=== PATIENT | female | born 1935 | race Caucasian/White ===

== ENCOUNTER 2017-03-11 16:02 | Inpatient (IN) | payer MEDICARE, OTHER ==
--- NOTE | 2017-03-11 16:17 | CT ---
EXAMINATION TYPE: CT brain wo con DATE OF EXAM: 03/11/2017 COMPARISON: NONE HISTORY: Right sided weakness. CT DLP: 1036.00 mGycm Automated exposure control for dose reduction was used. FINDINGS: Atherosclerotic change of the left vertebral artery noted. Could not exclude intracranial atheroscler otic disease of the carotid systems. Ventricular system is midline. There is periventricular hypoattenuation particularly along the fronta l horns. Additional areas of periventricular abnormal density suggestive of nonspecific white matter No acute hemorrhage, mass effect or midline shift. Tiny hypodensities within the basal ganglia bilate rally. IMPRESSION: 1. NO ACUTE HEMORRHAGE MASS EFFECT OR MIDLINE SHIFT. 2. NONSPECIFIC WHITE MATTER CHANGES. 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 CORRELATE WITH DIFFUSION MRI IF THERE IS CONCERN FOR ACUTE ISCHEMIA. 3. PROMINENT VIRCHOW-KRISTIAN SPACE VERSUS REMOTE LACUNAR INFARCTION BASAL GANGLIA.
[2017-03-11] MEDS ORDERED: SODIUM CHLORIDE 0.9% 500 ML IV STA (16:27)
--- NOTE | 2017-03-11 16:30 | ED ---
General Adult HPI - General Stated complaint: POSS CVA Time Seen by Provider: 03/11/17 16:25 Source: RN notes reviewed - History of Present Illness Initial comments: This is a 81-year-old female who presented to the emergency department without me evaluating the patient he was taken to CAT scan EMS stated that the the patient had right-sided weakness all washing dishes and slurred speech. EMS stated the patient initially fell when she became weak. I saw the patient after CAT scan her speech was fine and she had no weakness at this time. Patient denies headache patient denies any numbness weakness at this time. Patient states she feels back to her baseline. Patient states she does not have an irregular heart rate however EMS stated that when they did a rhythm strip on it appeared that she was in A. fib. Patient denies any palpitations. Patient denies any chest pain. Patient denies any shortness of breath or difficulty breathing. Patient denies any fever chills or cough. Patient denies any abdominal pain. Patient denies any nausea vomiting diarrhea. - Related Data Home Medications Medication Instructions Recorded Confirmed Atenolol [Tenormin] 50 mg PO DAILY 03/11/17 03/11/17 Losartan Potassium [Cozaar] 100 mg PO QAM 03/11/17 03/11/17 Simvastatin [Zocor] 20 mg PO HS 03/11/17 03/11/17 Allergies Allergy/AdvReac Type Severity Reaction Status Date / Time No Known Allergies Allergy Verified 03/11/17 16:30 Review of Systems ROS Statement: Those systems with pertinent positive or pertinent negative responses have been documented in the HPI. ROS Other: All systems not noted in ROS Statement are negative. General Exam - General Exam Comments Initial Comments: GENERAL: Patient is well-developed and well-nourished. Patient is nontoxic and well- hydrated and is in no acute distress. ENT: Neck is soft and supple. No significant lymphadenopathy is noted. Oropharynx is clear. Moist mucous membranes. Neck has full range of motion without eliciting any pain. EYES: The sclera were anicteric and conjunctiva were pink and moist. Extraocular movements were intact and pupils were equal round and reactive to light. Eyelids were unremarkable. PULMONARY: Unlabored respirations. Good breath sounds bilaterally. No audible rales rhonchi or wheezing was noted. CARDIOVASCULAR: There is a regular rate and rhythm without any murmurs gallops or rubs. ABDOMEN: Soft and nontender with normal bowel sounds. No palpable organomegaly was noted. There is no palpable pulsatile mass. SKIN: Skin is clear with no lesions or rashes and otherwise unremarkable. NEUROLOGIC: Patient is alert and oriented x3. Cranial nerves II through XII are grossly intact. Motor and sensory are also intact. Normal speech, volume and content. Symmetrical smile. MUSCULOSKELETAL: Normal extremities with adequate strength and full range of motion. No lower extremity swelling or edema. No calf tenderness. LYMPHATICS: No significant lymphadenopathy is noted PSYCHIATRIC: Normal psychiatric evaluation. Course Vital Signs 03/11/17 03/11/17 03/11/17 16:31 16:46 17:37 Temperature 98.4 F Pulse Rate 103 H 88 89 Respiratory 14 18 16 Rate Blood Pressure 217/126 207/115 224/113 O2 Sat by Pulse 98 98 97 Oximetry 03/11/17 18:41 Temperature 98.4 F Pulse Rate 83 Respiratory 20 Rate Blood Pressure 192/106 O2 Sat by Pulse 93 L Oximetry Medical Decision Making - Medical Decision Making EKG shows atrial fibrillation with rapid ventricular response at 105 bpm QRS is 82 QT interval 360 QTC is 475. Patient's EKG shows no ST segment elevation there is a slight ST segment depression in leads V4 through V6. Old - Lab Data Result diagrams: 03/11/17 16:45 03/11/17 16:45 Lab Results 03/11/17 03/11/17 03/11/17 Range/Units 16:26 16:45 16:45 WBC 8.2 (3.8-10.6) k/uL RBC 4.80 (3.80-5.40) m/uL Hgb 15.6 (11.4-16.0) gm/dL Hct 45.2 (34.0-46.0) % MCV 94.2 (80.0-100.0) fL MCH 32.5 (25.0-35.0) pg MCHC 34.6 (31.0-37.0) g/dL RDW 13.1 (11.5-15.5) % Plt Count 178 (150-450) k/uL Neutrophils % 70 % Lymphocytes % 23 % Monocytes % 4 % Eosinophils % 2 % Basophils % 0 % Neutrophils # 5.8 (1.3-7.7) k/uL Lymphocytes # 1.9 (1.0-4.8) k/uL Monocytes # 0.3 (0-1.0) k/uL Eosinophils # 0.1 (0-0.7) k/uL Basophils # 0.0 (0-0.2) k/uL PT (9.0-12.0) sec INR (<1.1) APTT (22.0-30.0) sec Sodium (137-145) mmol/L Potassium (3.5-5.1) mmol/L Chloride (98-107) mmol/L Carbon Dioxide (22-30) mmol/L Anion Gap mmol/L BUN (7-17) mg/dL Creatinine (0.52-1.04) mg/dL Est GFR (MDRD) Af Amer (>60 ml/min/1.73 sqM) Est GFR (MDRD) Non-Af (>60 ml/min/1.73 sqM) Glucose (74-99) mg/dL POC Glucose (mg/dL) 194 H (75-99) mg/dL POC Glu [employer] ID Sunny Dunlap Calcium (8.4-10.2) mg/dL Total Bilirubin (0.2-1.3) mg/dL AST (14-36) U/L ALT (9-52) U/L Alkaline Phosphatase (38-126) U/L Total Creatine Kinase 35 (30-135) U/L CK-MB (CK-2) 1.1 (0.0-2.4) ng/mL CK-MB (CK-2) Rel Index 3.1 Troponin I <0.012 (0.000-0.034) ng/mL Total Protein (6.3-8.2) g/dL Albumin (3.5-5.0) g/dL 03/11/17 03/11/17 Range/Units 16:45 16:45 WBC (3.8-10.6) k/uL RBC (3.80-5.40) m/uL Hgb (11.4-16.0) gm/dL Hct (34.0-46.0) % MCV (80.0-100.0) fL MCH (25.0-35.0) pg MCHC (31.0-37.0) g/dL RDW (11.5-15.5) % Plt Count (150-450) k/uL Neutrophils % % Lymphocytes % % Monocytes % % Eosinophils % % Basophils % % Neutrophils # (1.3-7.7) k/uL Lymphocytes # (1.0-4.8) k/uL Monocytes # (0-1.0) k/uL Eosinophils # (0-0.7) k/uL Basophils # (0-0.2) k/uL PT 10.9 (9.0-12.0) sec INR 1.1 (<1.1) APTT 20.1 L (22.0-30.0) sec Sodium 137 (137-145) mmol/L Potassium 3.9 (3.5-5.1) mmol/L Chloride 100 (98-107) mmol/L Carbon Dioxide 22 (22-30) mmol/L Anion Gap 15 mmol/L BUN 15 (7-17) mg/dL Creatinine 0.69 (0.52-1.04) mg/dL Est GFR (MDRD) Af Amer >60 (>60 ml/min/1.73 sqM) Est GFR (MDRD) Non-Af >60 (>60 ml/min/1.73 sqM) Glucose 180 H (74-99) mg/dL POC Glucose (mg/dL) (75-99) mg/dL POC Glu Grinder Machine Setter ID Calcium 9.5 (8.4-10.2) mg/dL Total Bilirubin 1.8 H (0.2-1.3) mg/dL AST 28 (14-36) U/L ALT 25 (9-52) U/L Alkaline Phosphatase 103 (38-126) U/L Total Creatine Kinase (30-135) U/L CK-MB (CK-2) (0.0-2.4) ng/mL CK-MB (CK-2) Rel Index Troponin I (0.000-0.034) ng/mL Total Protein 7.7 (6.3-8.2) g/dL Albumin 4.3 (3.5-5.0) g/dL Disposition Clinical Impression: Transient cerebral ischemia, New onset a-fib Disposition: ADMITTED IP TO THIS HOSP Referrals: Librado Paz MD [Primary Care Provider] - 1-2 days Time of Disposition: 19:15
[2017-03-11 16:35] LABS: Glucose,Whole Blood 194 mg/dL (75-99)
[2017-03-11] MEDS ORDERED: DILTIAZEM 5 MG/ML 5 ML VIAL IVP STA (16:42)
--- NOTE | 2017-03-11 16:53 | CT ---
EXAMINATION TYPE: CT angio head neck DATE OF EXAM: 03/11/2017 HISTORY: Right sided weakness. COMPARISON: NONE CT DLP: 307.60 mGycm. Automated Exposure Control for Dose Reduction was Utilized. TECHNIQUE: CTA scan of the neck is performed with IV Contrast, patient injected with 65 mL of Visipa que 320, axial images are obtained, coronal and sagittal reformatted images are reviewed. Three-D rec onstructed images are created on an independent workstation and reviewed. FINDINGS: There is anomalous right subclavian artery which passes posterior to the esophagus. There is bilatera l arterial flow in the vertebral arteries which are fairly symmetric. Distal left vertebral artery is larger than the right. There is arterial flow in the common internal and external carotid arteries. There is no evidence of stenosis. There is minimal calcification at the right carotid artery bifurcation. There is no sign of stenosis at the carotid artery bifurcations. There is no evidence of aneurysm or dissection. There is arterial flow in the anterior middle and posterior cerebral arteries. There is no mass effec t. There is no sign of aneurysm or neovascularity. There is normal contrast opacification of the veno us sinuses. IMPRESSION: No evidence of stenosis. No evidence of aneurysm or dissection. Anomalous right subclavian artery.
[2017-03-11 17:00] LABS: Basophils % (A) 0 %; CH 33.1; CHCM 35.3; Eosinophils # (A) 0.1 k/uL (0-0.7); Eosinophils % (A) 2 %; HCT 45.2 % (34.0-46.0); HGB 15.6 gm/dL (11.4-16.0); Luc # (Auto) 0.11; Luc % (Auto) 1; Lymphocytes # (A) 1.9 k/uL (1.0-4.8); Lymphocytes % (A) 23 %; MCH 32.5 pg (25.0-35.0); MCHC 34.6 g/dL (31.0-37.0); MCV 94.2 fL (80.0-100.0); Mean Platelet Volume 7.4; Monocytes # (A) 0.3 k/uL (0-1.0); Monocytes % (A) 4 %; Neutrophils # (A) 5.8 k/uL (1.3-7.7); Neutrophils % (A) 70 %; RDW 13.1 % (11.5-15.5); WBC 8.2 k/uL (3.8-10.6); WBC (Perox) 8.05
[2017-03-11 17:05] LABS: ALT 25 U/L (9-52); AST 28 U/L (14-36); Alkaline Phosphatase 103 U/L (38-126); Anion Gap 15 mmol/L; Blood Urea Nitrogen 15 mg/dL (7-17); Calcium 9.5 mg/dL (8.4-10.2); Carbon Dioxide 22 mmol/L (22-30); Chloride 100 mmol/L (98-107); Glucose 180 mg/dL (74-99); Non-African American GFR(MDRD) >60 (>60 ml/min/1.73 sqM); Potassium 3.9 mmol/L (3.5-5.1); Sodium 137 mmol/L (137-145); Total Bilirubin 1.8 mg/dL (0.2-1.3); Total Protein 7.7 g/dL (6.3-8.2)
[2017-03-11 17:17] LABS: Creatine Kinase 35 U/L (30-135); INR 1.1 (<1.1); Partial Thromboplastin Time 20.1 sec (22.0-30.0); Prothrombin Time 10.9 sec (9.0-12.0)
--- NOTE | 2017-03-11 17:21 | XR ---
EXAMINATION TYPE: XR chest 2V DATE OF EXAM: 03/11/2017 COMPARISON: The HISTORY: Altered mental status TECHNIQUE: Frontal and lateral views of the chest are obtained. FINDINGS: There is no heart failure nor confluent pneumonic infiltrate. There are no hilar masses. T here are chest leads. There is no sign of pleural effusion. Bony thorax is intact. IMPRESSION: Normal chest. No change. Left mastectomy noted.
[2017-03-11 17:30] LABS: Creatine Kinase MB 1.1 ng/mL (0.0-2.4); Troponin I <0.012 ng/mL (0.000-0.034)
[2017-03-11] MEDS ORDERED: ASPIRIN 325 MG TAB PO STA (18:38)
[2017-03-11] MEDS ORDERED: HEPARIN SODIUM,PORCINE 5,000 UNIT/ML 1 ML VIAL IV ONE (19:18)
[2017-03-11] MEDS ORDERED: hydrALAZINE HCL 20 MG/ML 1 ML VIAL IVP STA (19:21)
[2017-03-11] MEDS ORDERED: HEPARIN SODIUM,PORCINE/D5W PMX 25,000 UNIT in DEXTROSE/WATER 1 500ML.BAG IV SCH (19:30)
[2017-03-11 20:51] VITALS: BMI 33.4
[2017-03-11 21:56] LABS: Appearance,Urine Clear (Clear); Bacteria,Urine Rare /hpf; Bilirubin,Urine Negative (Negative); Glucose,Urine (UA) Negative (Negative); Ketones,Urine Negative (Negative); Leukocyte Esterase,Urine Negative (Negative); Nitrite,Urine Negative (Negative); PH, Urine 7.5 (5.0-8.0); Particle Count 371; Protein,Urine Negative (Negative); RBC,Urine 40 /hpf (0-5); Specific Gravity,Urine 1.012 (1.001-1.035); Squamous Epithelial Cell,Urine 1 /hpf (0-4); UA Billing (MACRO vs. MICRO) MICRO; Urobilinogen,Urine <2.0 mg/dL (<2.0); WBC,Urine 4 /hpf (0-5)
[2017-03-11] MEDS ORDERED: DILTIAZEM 125 MG in SODIUM CHLORIDE 0.9% 100 ML IV SCH (22:30)
[2017-03-11] MEDS ORDERED: ATORVASTATIN 10 MG TAB PO SCH (23:00)
[2017-03-11] MEDS: ACETAMINOPHEN TAB 325 MG TAB PO PRN (23:48)
[2017-03-11] MEDS: ALPRAZolam 0.25 MG TAB PO PRN (23:49)
[2017-03-12 06:17] LABS: Basophils % (A) 0 %; CHCM 35.3; Eosinophils # (A) 0.1 k/uL (0-0.7); Eosinophils % (A) 0 %; HCT 42.6 % (34.0-46.0); HDW 2.37; HGB 14.6 gm/dL (11.4-16.0); Luc # (Auto) 0.19; Luc % (Auto) 1; Lymphocytes % (A) 22 %; MCHC 34.1 g/dL (31.0-37.0); MCV 93.8 fL (80.0-100.0); Mean Platelet Volume 7.5; Monocytes # (A) 0.5 k/uL (0-1.0); Monocytes % (A) 4 %; Neutrophils # (A) 9.6 k/uL (1.3-7.7); Neutrophils % (A) 72 %; RBC 4.55 m/uL (3.80-5.40); RDW 13.1 % (11.5-15.5); WBC 13.4 k/uL (3.8-10.6); WBC (Perox) 13.52
[2017-03-12 06:28] LABS: Anion Gap 12 mmol/L; Blood Urea Nitrogen 12 mg/dL (7-17); Calcium 9.4 mg/dL (8.4-10.2); Carbon Dioxide 23 mmol/L (22-30); Chloride 101 mmol/L (98-107); Cholesterol 158 mg/dL (<200); Glucose 109 mg/dL (74-99); HDL Cholesterol 74 mg/dL (40-60); Non-African American GFR(MDRD) >60 (>60 ml/min/1.73 sqM); Potassium 3.6 mmol/L (3.5-5.1); Sodium 136 mmol/L (137-145); Triglycerides 68 mg/dL (<150)
[2017-03-12] MEDS: ALPRAZolam 0.25 MG TAB PO PRN ×2 (07:26→23:14)
--- NOTE | 2017-03-12 08:46 | P.CNNES ---
History of Present Illness Consult date: 03/12/17 Reason for Consult: Patient admitted with TIA symptoms and Atiral Fibrillation. History of Present Illness: This patient is a 81-year-old right-handed white female who was in her usual state of health until yesterday afternoon. According to the patient she was in her kitchen and was washing some dishes when she developed difficulty with the use of both of her hands. She was experiencing some numbness in the hands as well. She was able to contact her who was in the other room and when he arrived into the kitchen he noticed that her speech was quite slurred. He could tell that she had difficulty expressing herself and was not able to get her words out as usual. The immediately called 911. By the time EMS arrived at the home she was showing signs of improvement. She stated that her hands were just not feeling right and were weak. Her speech was very garbled initially as was noted by her . She has no previous history of TIA or stroke. She was brought in EMS to the emergency room where she was evaluated by Dr. Quiroz. She was sent for a computed tomography scan of the brain which failed to reveal any acute changes. She subsequently had a CT angiogram of the head and neck which also came back negative for any significant stenosis. In the emergency room Dr. Quiroz found that her EKG revealed her to have new onset atrial fibrillation. She was started on IV heparin protocol and admitted to the hospital. As noted computed tomography scan failed to reveal any acute stroke or hemorrhage. She denies any previous history of cardiac arrhythmia. Her blood pressure was treated in the ER and she was admitted to the hospital for a complete stroke evaluation. Patient is resting this morning comfortably in her room. Blood pressure is under much better control. As noted she has no previous history of atrial fibrillation. She denies any headache or weakness in her hands at this time. Her clinical history is very suggestive of a left hemispheric TIA. We have recommended a cardiology consultation for evaluation of her atrial fibrillation. Neurology is now been consulted for further evaluation and recommendations. Review of Systems Constitutional: Denies chills, Denies fever Eyes: denies blurred vision, denies pain Ears, nose, mouth and throat: Denies headache, Denies sore throat Cardiovascular: Denies chest pain, Denies shortness of breath Respiratory: Denies cough Gastrointestinal: Denies abdominal pain, Denies diarrhea, Denies nausea, Denies vomiting Genitourinary: Denies dysuria, Denies hematuria Musculoskeletal: Denies myalgias Integumentary: Denies pruritus, Denies rash Neurological: Reports change in speech, Reports paresthesias, Denies numbness, Denies weakness Psychiatric: Denies anxiety, Denies depression Endocrine: Denies fatigue, Denies weight change Past Medical History Past Medical History: Hyperlipidemia, Hypertension History of Any Multi-Drug Resistant Organisms: None Reported Past Surgical History: Appendectomy, Hysterectomy Additional Past Surgical History / Comment(s): left masectomy-2002 Past Anesthesia/Blood Transfusion Reactions: No Reported Reaction Past Psychological History: No Psychological Hx Reported Smoking Status: Never smoker Past Alcohol Use History: None Reported Past Drug Use History: None Reported - Past Family History Mother Family Medical History: Cancer Father Family Medical History: Cancer Medications and Allergies Home Medications Medication Instructions Recorded Confirmed Type Atenolol [Tenormin] 50 mg PO DAILY 03/11/17 03/11/17 History Losartan Potassium [Cozaar] 100 mg PO QAM 03/11/17 03/11/17 History Simvastatin [Zocor] 20 mg PO HS 03/11/17 03/11/17 History Allergies Allergy/AdvReac Type Severity Reaction Status Date / Time No Known Allergies Allergy Verified 03/11/17 16:30 Physical Examination - Vital Signs Vital Signs: Vital Signs Temp Pulse Pulse Resp BP BP Pulse Ox 03/12/17 05:32 97.0 F L 77 18 154/69 99 03/12/17 04:00 83 03/12/17 03:32 83 18 155/87 98 03/12/17 01:32 83 18 154/97 97 03/12/17 00:00 84 18 03/11/17 23:32 84 18 158/100 98 03/11/17 22:32 90 18 165/106 99 03/11/17 21:32 96 18 165/107 97 03/11/17 20:52 107 H 18 03/11/17 20:32 97.1 F L 107 H 18 163/95 96 03/11/17 19:51 88 16 177/109 99 03/11/17 19:24 88 18 181/128 99 03/11/17 18:41 98.4 F 83 20 192/106 93 L 03/11/17 17:37 89 16 224/113 97 03/11/17 16:46 88 18 207/115 98 03/11/17 16:31 98.4 F 103 H 14 217/126 98 Intake and Output 03/11/17 03/12/17 03/12/17 22:59 06:59 14:59 Intake Total 39.6 316.8 Output Total 250 950 Balance -210.4 -633.2 Intake: IV 39.6 316.8 0.9NS@20 160 Heparin Sodium,Porcine/ 19.6 156.8 D5w Pmx 25,000 unit In Dextrose/Water 1 500ml. bag @ 12 UNITS/KG/HR 19. 59 mls/hr IV .Q24H [facility]ARA Rx #:[id number] Sodium Chloride 0.9% 500 20 ml @ 999 mls/hr IV .Q31M STA Rx#:[id number] Output: Urine 250 950 Other: Voiding Method Toilet Toilet # Voids 1 Weight 85.6 kg 85.6 kg - Constitutional General appearance: average body habitus, cooperative - EENT EENT: PERRL, mucous membranes moist - Respiratory Respiratory: lungs clear, normal breath sounds - Cardiovascular Cardiovascular: normal S1, normal S2 Extremities: no peripheral edema bilaterally - Gastrointestinal Gastrointestinal: normoactive bowel sounds - Integumentary Integumentary: normal - Neurologic Cranial nerve examination: PERRL, EOMI, VFF, V1/V2/V3 grossly intact, face symmetric, intact shoulder shrug, intact gag reflex, intact corneal reflex, normal palatal elevation Speech examination: intact Sensorimotor examination: intact Detailed motor examination: grossly full strength in all extremities Motor examination - right side: 5/5: biceps, triceps, wrist flexion, wrist extension, wire rigger, hip flexors, knee extensors, dorsiflexion, toe extension (EHL) , plantarflexion Motor examination - left side: 5/5: biceps, triceps, wrist flexion, wrist extension, wire rigger, hip flexors, knee extensors, dorsiflexion, toe extension (EHL) , plantarflexion Detailed sensory examination: intact Reflex and gait examination: intact Reflexes: 1+: ankle, bicep, knee, tricep - Musculoskeletal Musculoskeletal: no pain - Psychiatric Psychiatric: mood/affect appropriate, cooperative Results - Laboratory Findings CBC and BMP: 03/12/17 05:41 03/12/17 05:41 Abnormal Lab Findings: Abnormal Labs 03/11/17 03/11/17 03/11/17 16:26 16:45 16:45 WBC Neutrophils # APTT 20.1 L Sodium Glucose 180 H POC Glucose (mg/dL) 194 H Total Bilirubin 1.8 H HDL Cholesterol Urine Blood Urine RBC Urine Bacteria 03/11/17 03/12/17 03/12/17 21:35 02:17 05:41 WBC Neutrophils # APTT 64.1 H Sodium 136 L Glucose 109 H POC Glucose (mg/dL) Total Bilirubin HDL Cholesterol 74 H Urine Blood Moderate H Urine RBC 40 H Urine Bacteria Rare H 03/12/17 05:41 WBC 13.4 H Neutrophils # 9.6 H APTT Sodium Glucose POC Glucose (mg/dL) Total Bilirubin HDL Cholesterol Urine Blood Urine RBC Urine Bacteria Assessment and Plan (1) TIA (transient ischemic attack) Status: Acute Code(s): G45.9 - TRANSIENT CEREBRAL ISCHEMIC ATTACK, UNSPECIFIED (2) Essential hypertension Status: Acute Code(s): I10 - ESSENTIAL (PRIMARY) HYPERTENSION (3) New onset a-fib Status: Acute Code(s): I48.91 - UNSPECIFIED ATRIAL FIBRILLATION Plan: This patient is a 81-year-old female who was admitted to hospital yesterday with sudden onset of slurred speech and hand weakness and numbness. Symptoms began yesterday afternoon at home and lasted several minutes in duration. By the time she was seen in the emergency room by Dr. Quiroz her NIH stroke scale was 0. She was sent for computed tomography scan of the brain which failed to reveal any evidence of acute stroke or hemorrhage. EKG revealed the patient to have new onset atrial fibrillation. Since computed tomography scan was negative for any acute hemorrhage or stroke she was started on IV heparin protocol and admitted to the hospital. Patient also underwent CT angiogram of the head and neck which was negative. Patient is now back to baseline in terms of her neurological exam findings. Her blood pressure is under better control. This patient likely suffered an acute left hemispheric TIA secondary to new onset atrial fibrillation. We would recommend a cardiology consultation for further treatment of the atrial fibrillation. We have recommended a complete stroke evaluation for the patient. Overall prognosis at this time remains guarded. We will continue close neurological follow-up of this patient during this admission. Time with Patient: Greater than 30
[2017-03-12] MEDS ORDERED: ASPIRIN 325 MG TAB PO SCH (09:00)
[2017-03-12] MEDS: ACETAMINOPHEN TAB 325 MG TAB PO PRN (09:03)
[2017-03-12] MEDS ORDERED: POTASSIUM CHLORIDE ER 20 MEQ TAB.ER PO STA (09:59)
--- NOTE | 2017-03-12 09:59 | P.CRDCN ---
History of Present Illness Consult date: 03/12/17 Requesting physician: Librado Paz Consult reason: atrial fibrillation Chief complaint: Hand weakness and expressive aphasia History of present illness: This is a pleasant 81-year-old female with history of hypertension, prior history of breast cancer with left mastectomy in 2001 who was in her usual state of health, she states that she was washing dishes in the kitchen, when she noticed her bilateral hands became extremely weak and numb, shortly thereafter the patient states she was unable to get the words out that she was thinking, and was having some mild slurring of speech. EMS was called and by the time they arrived symptoms had resolved. Patient denies any prior symptoms similar to this. EKG performed on admission here showed atrial fibrillation with a rapid ventricular response. CAT scan of the brain did not reveal any acute hemorrhage, mass effect or midline shift. Nonspecific white matter changes most likely on the basis of microvascular ischemia. CT angiography did not reveal evidence of stenosis. No evidence of aneurysm or dissection. Blood pressure on arrival here to 17/126, heart rate in the low 100s. 98.4 temperature 90.8 percent on 2 L of oxygen. Blood pressure this morning 140/70, heart rate in the 70s. She is currently on IV heparin, and IV Cardizem drip at 5 mg per hour. White blood cell count 8.2 yesterday, 13.4 this morning. Hemoglobin 14.6, platelet count 188, sodium 136, potassium 3.6, BUN 12, creatinine 0.6. Total bilirubin 1.8. Troponin 0.012, 0.032. BNP level 4100. Chest x-ray normal. At the time of my examination this morning, patient is sitting up in the chair at bedside, denies any weakness on either side of the body, no expressive aphasia, no dizziness or lightheadedness. Patient denies any palpitations and states that she has not noted any palpitations or heart racing in the past. She has never been told in the past to have atrial fibrillation. Past Medical History Past Medical History: Hyperlipidemia, Hypertension History of Any Multi-Drug Resistant Organisms: None Reported Past Surgical History: Appendectomy, Hysterectomy Additional Past Surgical History / Comment(s): left masectomy-2001 Past Anesthesia/Blood Transfusion Reactions: No Reported Reaction Past Psychological History: No Psychological Hx Reported Smoking Status: Never smoker Past Alcohol Use History: None Reported Past Drug Use History: None Reported - Past Family History Mother Family Medical History: Cancer Father Family Medical History: Cancer Medications and Allergies Home Medications Medication Instructions Recorded Confirmed Type Atenolol [Tenormin] 50 mg PO DAILY 03/11/17 03/11/17 History Losartan Potassium [Cozaar] 100 mg PO QAM 03/11/17 03/11/17 History Simvastatin [Zocor] 20 mg PO HS 03/11/17 03/11/17 History Allergies Allergy/AdvReac Type Severity Reaction Status Date / Time No Known Allergies Allergy Verified 03/11/17 16:30 Physical Exam Vitals: Vital Signs Temp Pulse Pulse Resp BP BP Pulse Ox 03/12/17 09:26 63 18 03/12/17 07:32 96.9 F L 68 18 140/77 99 03/12/17 05:32 97.0 F L 77 18 154/69 99 03/12/17 04:00 83 03/12/17 03:32 83 18 155/87 98 03/12/17 01:32 83 18 154/97 97 03/12/17 00:00 84 18 03/11/17 23:32 84 18 158/100 98 03/11/17 22:32 90 18 165/106 99 03/11/17 21:32 96 18 165/107 97 03/11/17 20:52 107 H 18 03/11/17 20:32 97.1 F L 107 H 18 163/95 96 03/11/17 19:51 88 16 177/109 99 03/11/17 19:24 88 18 181/128 99 03/11/17 18:41 98.4 F 83 20 192/106 93 L 03/11/17 17:37 89 16 224/113 97 03/11/17 16:46 88 18 207/115 98 03/11/17 16:31 98.4 F 103 H 14 217/126 98 Intake and Output 03/11/17 03/12/17 03/12/17 22:59 06:59 14:59 Intake Total 39.6 316.8 Output Total 250 950 Balance -210.4 -633.2 Intake: IV 39.6 316.8 0.9NS@20 160 Heparin Sodium,Porcine/ 19.6 156.8 D5w Pmx 25,000 unit In Dextrose/Water 1 500ml. bag @ 12 UNITS/KG/HR 19. 59 mls/hr IV .Q24H [facility] Rx #:[id number] Sodium Chloride 0.9% 500 20 ml @ 999 mls/hr IV .Q31M [facility] Rx#:[id number] Output: Urine 250 950 Other: Voiding Method Toilet Toilet Toilet # Voids 1 Weight 85.6 kg 85.6 kg PHYSICAL EXAMINATION: HEENT: Head is atraumatic, normocephalic. Pupils equal, round. Neck is supple. There is no elevated jugular venous pressure. HEART EXAMINATION: Heart S1 and S2 irregularly irregular CHEST EXAMINATION: Lungs are clear to auscultation and precussion. No chest wall tenderness is noted on palpation or with deep breathing. ABDOMEN: Soft, nontender. Bowel sounds are heard. No organomegaly noted. EXTREMITIES: 2+ peripheral pulses with no evidence of peripheral edema and no calf tenderness noted. NEUROLOGIC patient is awake, alert and oriented -3. . Results 03/12/17 05:41 03/12/17 05:41 Cardiac Enzymes 03/11/17 03/11/17 03/12/17 Range/Units 16:45 16:45 05:41 AST 28 (14-36) U/L CK-MB (CK-2) 1.1 (0.0-2.4) ng/mL Troponin I <0.012 0.032 (0.000-0.034) ng/mL Coagulation 03/11/17 03/12/17 Range/Units 16:45 02:17 PT 10.9 (9.0-12.0) sec APTT 20.1 L 64.1 H (22.0-30.0) sec Lipids 03/12/17 Range/Units 05:41 Triglycerides 68 (<150) mg/dL Cholesterol 158 (<200) mg/dL HDL Cholesterol 74 H (40-60) mg/dL CBC 03/11/17 03/12/17 Range/Units 16:45 05:41 WBC 8.2 13.4 H (3.8-10.6) k/uL RBC 4.80 4.55 (3.80-5.40) m/uL Hgb 15.6 14.6 (11.4-16.0) gm/dL Hct 45.2 42.6 (34.0-46.0) % Plt Count 178 188 (150-450) k/uL Comprehensive Metabolic Panel 03/11/17 03/12/17 Range/Units 16:45 05:41 Sodium 137 136 L (137-145) mmol/L Potassium 3.9 3.6 (3.5-5.1) mmol/L Chloride 100 101 (98-107) mmol/L Carbon Dioxide 22 23 (22-30) mmol/L BUN 15 12 (7-17) mg/dL Creatinine 0.69 0.60 (0.52-1.04) mg/dL Glucose 180 H 109 H (74-99) mg/dL Calcium 9.5 9.4 (8.4-10.2) mg/dL AST 28 (14-36) U/L ALT 25 (9-52) U/L Alkaline Phosphatase 103 (38-126) U/L Total Protein 7.7 (6.3-8.2) g/dL Albumin 4.3 (3.5-5.0) g/dL Current Medications Generic Name Dose Route Start Last Admin Trade Name Freq PRN Reason Stop Dose Admin Acetaminophen 650 mg 03/11/17 22:50 03/12/17 09:03 Tylenol Tab PO 650 mg Q6HR PRN Administration Fever and/ or Pain Alprazolam 0.25 mg 03/11/17 22:49 03/12/17 07:26 Xanax PO 0.25 mg QID PRN Administration Anxiety Aspirin 325 mg 03/12/17 09:00 03/12/17 09:04 Aspirin PO 325 mg DAILY [facility] Administration Atorvastatin Calcium 10 mg 03/11/17 23:00 03/11/17 23:49 Lipitor PO 10 mg HS SARA Administration Heparin Sodium/Dextrose 25,000 500 mls @ 19.59 mls/hr 03/11/17 19:30 19:59 unit/ IV Solution IV 12 units/kg/hr .Q24H [facility] 19.59 mls/hr Protocol Administration 12 UNITS/KG/HR Diltiazem HCl 125 mg/ Sodium 125 mls @ 5 mls/hr 03/11/17 22:30 03/11/17 22:31 Chloride IV 5 mg/hr .Q24H [facility] 5 mls/hr 5 MG/HR Administration Losartan Potassium 100 mg 03/12/17 09:00 Cozaar PO QAM [facility] Intake and Output 03/11/17 03/12/17 03/12/17 22:59 06:59 14:59 Intake Total 39.6 316.8 Output Total 250 950 Balance -210.4 -633.2 Intake: IV 39.6 316.8 0.9NS@20 160 Heparin Sodium,Porcine/ 19.6 156.8 D5w Pmx 25,000 unit In Dextrose/Water 1 500ml. bag @ 12 UNITS/KG/HR 19. 59 mls/hr IV .Q24H [facility] Rx #:[id number] Sodium Chloride 0.9% 500 20 ml @ 999 mls/hr IV .Q31M [facility] Rx#:[id number] Output: Urine 250 950 Other: Voiding Method Toilet Toilet Toilet # Voids 1 Weight 85.6 kg 85.6 kg 03/12/17 05:41 03/12/17 05:41 EKG Interpretations (text) EKG shows atrial fibrillation with a rapid ventricular response Assessment and Plan Plan: Assessment and plan #1 atrial fibrillation with rapid ventricular response, appears to be of new onset. #2 hypertensive urgency #3 TIA #4 history of hypertension #5 history of breast cancer with prior left mastectomy in 2001 Plan We will obtain a free T4 and TSH level. Continue IV heparin. Decrease aspirin to 81 mg daily. Obtain echocardiogram with Doppler study. Replace potassium. Obtain magnesium level. We will also check to see if the patient has coverage for one of the newer anticoagulants. I did educate the patient and her regarding the importance of anticoagulation for stroke prevention. Further recommendations to follow. DNP note has been reviewed, I agree with a documented findings and plan of care. Patient was seen and examined.
[2017-03-12 10:49] LABS: Magnesium 1.8 mg/dL (1.6-2.3)
--- NOTE | 2017-03-12 10:55 | ECHOF ---
Referral Reason:atrial fib,tia ,htn urgency MEASUREMENTS -------- HEIGHT: 160.0 cm WEIGHT: 85.3 kg BP: 158/100 RVIDd: 3.4 cm (< 3.3) IVSd: 1.2 cm (0.6 - 1.1) LVIDd: 3.9 cm (3.9 - 5.3) LVPWd: 1.2 cm (0.6 - 1.1) IVSs: 1.3 cm LVIDs: 2.4 cm LVPWs: 1.7 cm LA Diam: 3.4 cm (2.7 - 3.8) LAESV Index (A-L): 21.40 ml/m Ao Diam: 2.8 cm (2.0 - 3.7) AV Cusp: 1.9 cm (1.5 - 2.6) MV EXCURSION: 20.174 mm (> 18.000) MV EF SLOPE: 63 mm/s (70 - 150) EPSS: 0.5 cm RAP: 5.00 mmHg RVSP: 35.45 mmHg FINDINGS -------- This was a technically good study. The left ventricular size is normal. There is borderline concentric left ventricular hypertrophy. Overall left ventricular systolic function is normal with, an EF between 55 - 60 %. The right ventricle is mildly enlarged. Normal LA size by volume 22+/-6 ml/m2. The right atrium is normal in size. Aortic valve is trileaflet and is mildly thickened. Mild mitral annular calcification present. There is trace to mild mitral regurgitation. Mild tricuspid regurgitation present. The right ventricular systolic pressure, as measured by Doppler, is 35.45mmHg. Trace/mild (physiologic) pulmonic regurgitation. The aortic root size is normal. Normal inferior vena cava with normal inspiratory collapse consistent with estimated right atrial pressure of 5 mmHg. The pericardium is normal. CONCLUSIONS -------- 1. This was a technically good study. 2. There is trace to mild mitral regurgitation. 3. Mild tricuspid regurgitation present. 4. The right ventricular systolic pressure, as measured by Doppler, is 35.45mmHg. 5. Trace/mild (physiologic) pulmonic regurgitation. 6. The aortic root size is normal. 7. Normal inferior vena cava with normal inspiratory collapse consistent with estimated right atrial pressure of 5 mmHg. 8. The pericardium is normal. 9. The left ventricular size is normal. 10. There is borderline concentric left ventricular hypertrophy. 11. Overall left ventricular systolic function is normal with, an EF between 55 - 60 %. 12. The right ventricle is mildly enlarged. 13. Normal LA size by volume 22+/-6 ml/m2. 14. The right atrium is normal in size. 15. Aortic valve is trileaflet and is mildly thickened. 16. Mild mitral annular calcification present. LABORATORY AIDE: Gladis Hassan RDCS
--- NOTE | 2017-03-12 11:13 | US ---
EXAMINATION TYPE: US carotid duplex BILAT DATE OF EXAM: 03/12/2017 COMPARISON: NONE CLINICAL HISTORY: Stenosis. EXAM MEASUREMENTS: RIGHT: Peak Systolic Velocity (PSV) cm/sec ----- Right CCA: 54.6 ----- Right ICA: 54.9 ----- Right ECA: 80.5 ICA/CCA ratio: 1.0 RIGHT: End Diastole cm/sec ----- Right CCA: 15.4 ----- Right ICA: 17.0 ----- Right ECA: 8.2 LEFT: Peak Systolic Velocity (PSV) cm/sec ----- Left CCA: 66.6 ----- Left ICA: 49.1 ----- Left ECA: 86.5 ICA/CCA ratio: 0.7 LEFT: End Diastole cm/sec ----- Left CCA: 17.8 ----- Left ICA: 13.5 ----- Left ECA: 8.6 VERTEBRALS (direction of flow): Right Vertebral: Antegrade Left Vertebral: Antegrade Mild plaque, no significant velocity elevations. IMPRESSION: I DO NOT SEE EVIDENCE OF A HEMODYNAMICALLY SIGNIFICANT STENOSIS IN EITHER CAROTID SYSTEM. Criteria for Assigning % of Stenosis / Diameter reduction (Estimation based on the indirect measurements of the internal carotid artery velocities (ICA PSV). 1. Normal (no stenosis)=ICA PSV < 125 cm/s: ratio < 2.0: ICA EDV<40 cm/s. 2. Less than 50% stenosis=ICA PSV < 125 cm/s: ratio < 2.0: ICA EDV<40 cm/s. 3. 50 to 69% stenosis=ICA PSV of 125 to 230 cm/s: ration 2.0 ? 4.0: ICA EDV 40-100 cm/s. 4. Greater than 70% stenosis to near occlusion= ICA PSV > 230 cm/s: ratio > 4.0: ICA EDV > 100 cm/s. 5. Near occlusion= ICA PSV velocities may be low or undetectable: variable ratio and ICA EDV. 6. Total occlusion=unable to detect flow.
--- NOTE | 2017-03-12 12:03 | XR ---
EXAMINATION TYPE: XR knee complete RT DATE OF EXAM: 03/12/2017 COMPARISON: NONE HISTORY: Pain TECHNIQUE: Four views are submitted. FINDINGS: There is a well-corticated bony density adjacent the medial femoral condyle. This appears most likely chronic but can be associated with internal derangement of the knee. Mild diffuse osteopenia. There is mild arthropathy of the joint spaces and a small to moderate-sized suprapatellar bursal fluid collection. IMPRESSION: 1. Osteoarthritis 2. [id number] suprapatellar bursal fluid collection 3. Consider MRI to assess for internal derangement of the knee as discussed above.
[2017-03-12] MEDS: LOSARTAN 50 MG TAB PO SCH (12:46)
[2017-03-12] MEDS: ATENOLOL 50 MG TAB PO SCH ×2 (12:46→21:46)
--- NOTE | 2017-03-12 13:38 | P.PN ---
Progress Note - Text This is an addendum to the dictated cardiology consultation. The patient presents with symptoms of TIA and expressive aphasia. She was noted to be in atrial fibrillation of unknown duration. She felt palpitation only yesterday but not prior to that. She is reasonably active physically without any significant dyspnea or chest pain. She denies any prior history of dizziness or syncope, she has no PND orthopnea or peripheral edema. On physical examination she is in atrial fibrillation, she has a systolic ejection murmur and no lung congestion. Her echocardiogram showed a normal systolic function with no significant valvular disease. Patient will be started on anticoagulation, depending on her ventricle response further adjustment in her beta cee will be made. I will stop her IV Cardizem. She will need to be evaluated further as an outpatient to see if she is a candidate to restore sinus mechanism. Thank you for this consult we will follow with you.
--- NOTE | 2017-03-12 13:55 | P.HPIM ---
History of Present Illness This is a dictation on the history and physical date of service 03/12/2017, dictated by Dr. Jackson Paulino [facility]. Patient seen and evaluated and discussed with her and the patient, Consultation was neurology Dr. Neri. Consultation with Dr. Gonzalez cardiology. Chief complaint presentation in the ER. Patient complaining of generalized weakness and feeling dizzy and short of breath and fell gradually to the floor she Evan untold the chair able to sit in the chair, her was outside he came in, she was garbled speech she could not have movement right or left with the associated weakness he called the ambulance and called 911. Patient arrived to emergency room Dr. Quiroz did see her after the nurses and she was completely recovered from the fascial defect which was noted and the garbled speech and stroke scale was 0 and able to communicate and move the extremities. Her CT was questionable lacunar could be old. Also found that she had hypertensive urgency with blood pressure was in the average of 200-190 and patient has also found to have acute atrial fibrillation of a new onset. At that time patient placed on cardiac exam drip and heparin protocol recheck due with Dr. gonzalez kier operator. CT of the brain no acute hemorrhagic mass effect no specific white matter changes most likely basis of micro-vascular ischemic white matter there is also concern for acute ischemia and they stated that she had varicoseRobin versus remote no colon or infarction basal ganglia read by Dr. Jacky Schmitz. Past medical history: #1 general anxiety disorder #2 hypertension essential #3 hyperlipidemia #4 insomnia #5 history of varicose veins of the lower extremities #6 underlying asthma with mild COPD in the past not currently present she has also underlying depression. Social history she is and had several children and grad and great children and great-grandchildren. Social history she is she exercise and she is never smoked in the past she drinking one coffee. ALLERGY ALLERGY amlodipine/Az0r Current list of medication she has taken atenolol 50 mg tablet in the morning half a tablet in the evening #2 she had a post viral in family gram twice a day #3 simvastatin 20 mg daily at bedtime #4 losartan 100 mg once a day in a.m. for hypertension #5 she is on hydralazine 25 mg 3 times a day #6 she is on lorazepam 0.5 mg 1 tablet at bedtime. #6 she is on aspirin 81 mg daily #7 she is on fluticasone nasal spray 50 g per inhalation 1 spray twice a day when necessary. She is also on #8 Sreekanth-Citrate 600 mg with vitamin D 400 mg. Review of system: Patient denied any sudden drop on the floor but gradually and she doesn't have a black her eyes during these episodes and the however she went down because of the generalized weakness. Cardiovascular she filled generalized weakness with increased the heart rate Respiratory was short of breath at the time of the event GI no nausea vomiting or hematemesis or melena or hematochezia Muscle: Weakness. Skin no rash. Tendency or bleeding. Not present. Physical exam: HEENT head was normocephalic atraumatic, pupil was equal reactive, hearing was normal, nose no discharge, oropharynx was dentures upper and lower was normal tongue. The neck supple no JVD no thyromegaly no lymphadenopathy trachea midline. Chest was clear to auscultation and percussion Heart currently is regular sinus rhythm and the she had Atrovent fibrillation with rapid ventricular response on admission with the EKG done in the ER indicating heart rate 105. And the TIA was resolved in the ER Abdomen soft positive bowel sounds no organ enlargement and no tenderness in the 4 quadrants. Extremities positive pulses bilateral no edema. Neuro patient able to ambulate moving 4 extremities with conscious no evidence of lateralizing sign. And seen today also by the neurologist Dr. Neri. Assessment: #1 acute at [place] fibrillation with rapid ventricular response currently reverted to sinus #2 TIA resolved. #3 hypertensive urgency currently controlled her blood pressure. #4 Gen. anxiety disorder #6 history of left breast removed for cancer with no recurrence. Plan: Cardiology consultation for for further evaluation. Neurological evaluation [facility]. Past Medical History Past Medical History: Hyperlipidemia, Hypertension History of Any Multi-Drug Resistant Organisms: None Reported Past Surgical History: Appendectomy, Hysterectomy Additional Past Surgical History / Comment(s): left masectomy-2001 Past Anesthesia/Blood Transfusion Reactions: No Reported Reaction Past Psychological History: No Psychological Hx Reported Smoking Status: Never smoker Past Alcohol Use History: None Reported Past Drug Use History: None Reported - Past Family History Mother Family Medical History: Cancer Father Family Medical History: Cancer Medications and Allergies Home Medications Medication Instructions Recorded Confirmed Type Atenolol [Tenormin] 50 mg PO DAILY 03/11/17 03/11/17 History Losartan Potassium [Cozaar] 100 mg PO QAM 03/11/17 03/11/17 History Simvastatin [Zocor] 20 mg PO HS 03/11/17 03/11/17 History Allergies Allergy/AdvReac Type Severity Reaction Status Date / Time No Known Allergies Allergy Verified 03/11/17 16:30 Physical Exam Vitals: Vital Signs Temp Pulse Pulse Resp BP BP Pulse Ox 03/12/17 09:47 96 03/12/17 09:26 63 18 03/12/17 07:32 96.9 F L 68 18 140/77 99 03/12/17 05:32 97.0 F L 77 18 154/69 99 03/12/17 04:00 83 03/12/17 03:32 83 18 155/87 98 03/12/17 01:32 83 18 154/97 97 03/12/17 00:00 84 18 03/11/17 23:32 84 18 158/100 98 03/11/17 22:32 90 18 165/106 99 03/11/17 21:32 96 18 165/107 97 03/11/17 20:52 107 H 18 03/11/17 20:32 97.1 F L 107 H 18 163/95 96 03/11/17 19:51 88 16 177/109 99 03/11/17 19:24 88 18 181/128 99 03/11/17 18:41 98.4 F 83 20 192/106 93 L 03/11/17 17:37 89 16 224/113 97 03/11/17 16:46 88 18 207/115 98 03/11/17 16:31 98.4 F 103 H 14 217/126 98 Intake and Output 03/11/17 03/12/17 03/12/17 22:59 06:59 14:59 Intake Total 39.6 316.8 Output Total 250 950 Balance -210.4 -633.2 Intake: IV 39.6 316.8 0.9NS@20 160 Heparin Sodium,Porcine/ 19.6 156.8 D5w Pmx 25,000 unit In Dextrose/Water 1 500ml. bag @ 12 UNITS/KG/HR 19. 59 mls/hr IV .Q24H [facility] Rx #:[id number] Sodium Chloride 0.9% 500 20 ml @ 999 mls/hr IV .Q31M [facility] Rx#:[id number] Output: Urine 250 950 Other: Voiding Method Toilet Toilet Toilet # Voids 1 0 Weight 85.6 kg 85.6 kg Results CBC & Chem 7: 03/12/17 05:41 03/12/17 05:41 Labs: Abnormal Lab Results - Last 24 Hours (Table) 03/11/17 03/11/17 03/11/17 Range/Units 16:26 16:45 16:45 WBC (3.8-10.6) k/uL Neutrophils # (1.3-7.7) k/uL APTT 20.1 L (22.0-30.0) sec Sodium (137-145) mmol/L Glucose 180 H (74-99) mg/dL POC Glucose (mg/dL) 194 H (75-99) mg/dL Total Bilirubin 1.8 H (0.2-1.3) mg/dL HDL Cholesterol (40-60) mg/dL Urine Blood (Negative) Urine RBC (0-5) /hpf Urine Bacteria (None) /hpf 03/11/17 03/12/17 03/12/17 Range/Units 21:35 02:17 05:41 WBC (3.8-10.6) k/uL Neutrophils # (1.3-7.7) k/uL APTT 64.1 H (22.0-30.0) sec Sodium 136 L (137-145) mmol/L Glucose 109 H (74-99) mg/dL POC Glucose (mg/dL) (75-99) mg/dL Total Bilirubin (0.2-1.3) mg/dL HDL Cholesterol 74 H (40-60) mg/dL Urine Blood Moderate H (Negative) Urine RBC 40 H (0-5) /hpf Urine Bacteria Rare H (None) /hpf 03/12/17 Range/Units 05:41 WBC 13.4 H (3.8-10.6) k/uL Neutrophils # 9.6 H (1.3-7.7) k/uL APTT (22.0-30.0) sec Sodium (137-145) mmol/L Glucose (74-99) mg/dL POC Glucose (mg/dL) (75-99) mg/dL Total Bilirubin (0.2-1.3) mg/dL HDL Cholesterol (40-60) mg/dL Urine Blood (Negative) Urine RBC (0-5) /hpf Urine Bacteria (None) /hpf Microbiology - Last 24 Hours (Table) 03/11/17 21:35 Urine Culture - Preliminary Urine,Voided Thrombosis Risk Factor Assmnt - Choose All That Apply Any of the Below Risk Factors Present?: Yes Each Factor Represents 1 point: Medical pt on bed rest, Obesity (BMI >25) Other Risk Factors: Yes Each Risk Factor Represents 3 Points: Age 75 years or older Thrombosis Risk Factor Assessment Total Risk Factor Score: 5 Thrombosis Risk Factor Assessment Level: High Risk
[2017-03-12] MEDS: APIXABAN 2.5 MG TABLET PO SCH (19:03)
[2017-03-12] MEDS: ATORVASTATIN 40 MG TAB PO SCH (19:03)
[2017-03-13] MEDS ORDERED: amLODIPine 5 MG TAB PO STA (06:22)
[2017-03-13] MEDS: ALPRAZolam 0.25 MG TAB PO PRN ×3 (06:23→22:05)
[2017-03-13 07:08] LABS: Anion Gap 9 mmol/L; Blood Urea Nitrogen 12 mg/dL (7-17); Calcium 9.2 mg/dL (8.4-10.2); Carbon Dioxide 25 mmol/L (22-30); Chloride 102 mmol/L (98-107); Glucose 91 mg/dL (74-99); Non-African American GFR(MDRD) >60 (>60 ml/min/1.73 sqM); Potassium 4.3 mmol/L (3.5-5.1); Sodium 136 mmol/L (137-145)
--- NOTE | 2017-03-13 07:54 | EEG ---
DATE OF SERVICE: 03/12/2017 INDICATIONS FOR EXAMINATION: This patient is a 81-year-old female being evaluated for transient ischemic attack symptoms and new onset atrial fibrillation. AGE: 81Y EEG FINDINGS: A routine 21-channel awake digital EEG recording was accomplished utilizing the 10-20 international system with bipolar and referential montages. The background activity in the most alert resting state consists of a low to medium amplitude, fairly well-developed and well-sustained 7-8 Hz activity over the posterior head regions. This posterior rhythm attenuates to eye opening. There is a small amount of low amplitude 18-20 Hz beta activity seen maximally over the anterior head regions. Muscle and movement artifact was observed on a few occasions during the tracing. Hyperventilation was not performed. Photic stimulation at flash frequencies of 2-30 Hz produced a good symmetrical occipital driving response. No epileptiform discharges were seen. IMPRESSION: This EEG is within normal limits for the patient's age. The EEG failed to reveal any focal, lateralized or epileptiform abnormalities. Clinical correlation is recommended.
[2017-03-13] MEDS: APIXABAN 2.5 MG TABLET PO SCH ×2 (08:52→22:02)
[2017-03-13] MEDS: LOSARTAN 50 MG TAB PO SCH (08:53)
[2017-03-13] MEDS: ATENOLOL 50 MG TAB PO SCH (08:53)
[2017-03-13] MEDS: HYDROCHLOROTHIAZIDE 25 MG TAB PO SCH (11:22)
--- NOTE | 2017-03-13 12:54 | P.PN ---
Subjective Principal diagnosis: TIA, hypertension This is a pleasant 81-year-old female with history of hypertension, prior history of breast cancer with left mastectomy in 2001 who was in her usual state of health, she states that she was washing dishes in the kitchen, when she noticed her bilateral hands became extremely weak and numb, shortly thereafter the patient states she was unable to get the words out that she was thinking, and was having some mild slurring of speech. EMS was called and by the time they arrived symptoms had resolved. Patient denies any prior symptoms similar to this. EKG performed on admission here showed atrial fibrillation with a rapid ventricular response. Blood pressure on arrival here 217/126. Blood pressure this morning 190/103, 185/110. Patient was started on Norvasc along with hydrochlorothiazide. She is already on atenolol and losartan. Patient was also initiated on Eliquis 2-1/2 mg one tablet by mouth twice a day yesterday. Echocardiogram with Doppler study was performed which revealed an ejection fraction of 55-60%. Overall the patient feels well, she does state he is mildly anxious, but no other complaints. No further episodes of expressive aphasia, no further episodes of weakness. Objective - Vital Signs Vital signs: Vital Signs Temp 96.6 F L 03/13/17 11:24 Pulse 80 03/13/17 11:24 Resp 16 03/13/17 11:24 BP 185/111 03/13/17 11:24 Pulse Ox 97 03/13/17 11:24 Intake & Output 03/12/17 03/13/17 03/13/17 18:59 06:59 18:59 Intake Total 120 370 Output Total 200 Balance 120 -200 370 Weight 84.9 kg Intake: IV 10 0.9NS@20 10 Oral 120 360 Output: Urine 200 Other: Voiding Method Toilet Toilet # Voids 1 # Bowel Movements 0 - Exam PHYSICAL EXAMINATION: HEENT: Head is atraumatic, normocephalic. Pupils equal, round. Neck is supple. There is no elevated jugular venous pressure. HEART EXAMINATION: Heart S1 and S2 irregularly irregular systolic murmur is heard. CHEST EXAMINATION: Lungs are clear to auscultation and precussion. No chest wall tenderness is noted on palpation or with deep breathing. ABDOMEN: Soft, nontender. Bowel sounds are heard. No organomegaly noted. EXTREMITIES: 2+ peripheral pulses with no evidence of peripheral edema and no calf tenderness noted. NEUROLOGIC patient is awake, alert and oriented -3. . - Labs CBC & Chem 7: 03/12/17 05:41 03/13/17 05:30 Labs: Abnormal Lab Results - Last 24 Hours (Table) 03/13/17 Range/Units 05:30 Sodium 136 L (137-145) mmol/L Microbiology - Last 24 Hours (Table) 03/11/17 21:35 Urine Culture - Final Urine,Voided Assessment and Plan Plan: Assessment and plan #1 atrial fibrillation , chronic persistent #2 hypertensive urgency #3 TIA #4 history of hypertension #5 history of breast cancer with prior left mastectomy in 2001 Plan We will add Norvasc 5 mg one tablet by mouth daily along with hydrochlorothiazide to the patient's medication regime. She has also been approved for Eliquis, and has been started on Eliquis 2-1/2 mg one tablet by mouth twice a day. DNP note has been reviewed, I agree with a documented findings and plan of care. Patient was seen and examined.
--- NOTE | 2017-03-13 14:48 | P.PN ---
Subjective This is dictation on progress note date of service 03/13/[address] Jackson Paulino [facility]. Patient seen today evaluated discussed with the patient her and the family. Patient denied any chest pain, no feeling of palpitation however patient still in atrial fibrillation on the monitor. Patient today has a spike of blood pressure to 190-200 systolic without any increase in as a did ask the patient if any complaint happened during the sudden elevation of blood pressure. Dr. Vogel pluck trimmer did address that and adjusted her medication with improvement on the blood pressure. On examination [id number]. She is conscious alert oriented 3 communicating with her family sons and daughters and the with no ill effect no headache no blurred vision. Her HEENT negative with dentures in the oropharynx normal hearing. Neck supple no JVD and no lymphadenopathy no thyromegaly. Chest is clear to auscultation and percussion Heart was irregular irregularities with the atrial fibrillation with a chads 2, patient received anticoagulant,eliquis 2.5 mg twice a day by pluck trimmer order. Abdomen is soft positive bowel sounds no organ enlargement. Extremities no edema and positive pulses. With the underlying probable varicose veins. Neuro exam negative. Assessment: #1 atrial fibrillation new onset. #2 labile hypertension with hypertensive urgency. #3 rule out renal artery stenosis with the fluctuation of the blood pressure. #4 hypertension and hypertensive heart disease. #5 left breast mastectomy for breast cancer. Plan. #1 patient going to have duplex scan of the renal artery bilaterally tomorrow to rule out renal artery stenosis. #2 adjustment of name of the medication for hypertension has been done by Dr. vogel pluck trimmer. #3 patient placed on anticoagulation. #4 review the results of the renal artery duplex tomorrow. #5 with the blood pressure controlled and stable will be discharged home in 24 hour to 48 hour period Objective - Vital Signs Vital signs: Vital Signs Temp 96.6 F L 03/13/17 11:24 Pulse 83 03/13/17 13:23 Resp 16 03/13/17 11:24 BP 158/95 03/13/17 13:23 Pulse Ox 97 03/13/17 11:24 Intake & Output 03/12/17 03/13/17 03/13/17 18:59 06:59 18:59 Intake Total 120 670 Output Total 200 Balance 120 -200 670 Weight 84.9 kg Intake: IV 10 0.9NS@20 10 Oral 120 660 Output: Urine 200 Other: Voiding Method Toilet Toilet # Voids 1 # Bowel Movements 0 - Labs CBC & Chem 7: 03/12/17 05:41 03/13/17 05:30 Labs: Abnormal Lab Results - Last 24 Hours (Table) 03/13/17 Range/Units 05:30 Sodium 136 L (137-145) mmol/L Microbiology - Last 24 Hours (Table) 03/11/17 21:35 Urine Culture - Final Urine,Voided
--- NOTE | 2017-03-13 19:56 | P.PN ---
Subjective This patient is an 81 year old female being evaluated for atrial fibrillation and TIA. Patient was seen yesterday on neurology consultation. She presented with history of bilateral hand weakness and word finding difficulties and possible mild aphasia. She was having difficulty getting her words out and it did seem to be slightly slurred at times. She was brought into the emergency room by which time her symptoms had resolved. In the ER she was found on EKG to have evidence of new onset atrial fibrillation with a rapid ventricular response. She was also found to have hypertensive urgency. She was sent for computed tomography scan of the brain which failed to reveal any acute stroke or hemorrhage. She was admitted to Hospital. She underwent a carotid Doppler ultrasound which failed to reveal any evidence of significant carotid artery stenosis. Echocardiogram revealed ejection fraction of 55-60 percent. The patient was started on IV heparin protocol due to the atrial fibrillation. She was seen by cardiology for evaluation of her hypertension. Her blood pressure was elevated on admission. She was started on Norvasc along with hydrochlorothiazide by cardiology. Due to to her ongoing atrial fibrillation she has now been started on long-term anticoagulation for management of the atrial fibrillation. She is now been started on for long-term anticoagulation. Patient has been doing very well today. She has had no further episodes of hand weakness or aphasia. Her clinical history is consistent with acute TIA. She underwent a routine EEG yesterday which was reviewed and is normal for age. She is being considered for possible discharge home tomorrow if her blood pressure remains under good control. Her neurological examination today is nonfocal. Patient may follow-up in the outpatient neurology clinic in 3-4 weeks following discharge. Her overall prognosis at this time remains guarded. Objective - Vital Signs Vital signs: Vital Signs Temp 96.6 F L 03/13/17 11:24 Pulse 83 03/13/17 13:23 Resp 16 03/13/17 11:24 BP 158/95 03/13/17 13:23 Pulse Ox 97 03/13/17 11:24 Intake & Output 03/12/17 03/13/17 03/13/17 18:59 06:59 18:59 Intake Total 120 670 Output Total 200 Balance 120 -200 670 Weight 84.9 kg Intake: IV 10 0.9NS@20 10 Oral 120 660 Output: Urine 200 Other: Voiding Method Toilet Toilet # Voids 1 # Bowel Movements 0 - Exam Physical examination: PHYSICAL EXAMINATION: Patient is resting comfortably in bed. VITAL SIGNS: Blood pressure is [162/94]. Heart rate is [82]. Respiration is [16] . Temperature is [97.1]. HEENT: Head is atraumatic, neck is supple, there were no carotid bruits. CHEST: Lungs are clear to auscultation and percussion. CARDIAC: S1, S2 normal rate and rhythm. There is no murmur. ABDOMEN: Soft and nontender. Bowel sounds are present. EXTREMITIES: There is no pedal edema. Peripheral pulses are present. Neurological examination: Patient has a nonfocal neurological examination today. - Labs CBC & Chem 7: 03/12/17 05:41 03/13/17 05:30 Labs: Abnormal Lab Results - Last 24 Hours (Table) 03/13/17 Range/Units 05:30 Sodium 136 L (137-145) mmol/L Microbiology - Last 24 Hours (Table) 03/11/17 21:35 Urine Culture - Final Urine,Voided Assessment and Plan (1) TIA (transient ischemic attack) Status: Acute Code(s): G45.9 - TRANSIENT CEREBRAL ISCHEMIC ATTACK, UNSPECIFIED (2) Essential hypertension Status: Acute Code(s): I10 - ESSENTIAL (PRIMARY) HYPERTENSION (3) New onset a-fib Status: Acute Code(s): I48.91 - UNSPECIFIED ATRIAL FIBRILLATION Plan: This patient is a 81-year-old female who was seen in neurology consultation yesterday for acute TIA symptoms. She had an episode while washing dishes of hand weakness and difficulty with her speech. The episode resolved by the time she was seen in the emergency room. In the ER she had evidence on EKG of new onset atrial fibrillation with rapid ventricular response. She was started on IV heparin protocol and admitted to the hospital. Patient neurological exam findings since admission have been nonfocal. She has had no recurrence of the TIA symptoms. She was seen by cardiology and has been started on antihypertensive medications were better control of her blood pressure. She is anticoagulated for further treatment of her atrial fibrillation. She was started on was by cardiology today. Her neurological examination today remains nonfocal. She is being considered for possible discharge home tomorrow if she remains under good control with her blood pressure. Her neurological examination today is nonfocal. Patient may follow-up in the outpatient neurology clinic in 3-4 weeks. Overall prognosis at this time remains guarded.
[2017-03-13] MEDS: ATORVASTATIN 40 MG TAB PO SCH (22:02)
[2017-03-13] MEDS: hydrALAZINE HCL 25 MG TAB PO SCH (23:34)
[2017-03-14] MEDS: hydrALAZINE HCL 25 MG TAB PO SCH ×2 (00:03→10:50)
[2017-03-14 00:12] VITALS: RESP 18
[2017-03-14 07:04] VITALS: TEMP 97.1
[2017-03-14] MEDS: ALPRAZolam 0.25 MG TAB PO PRN (07:04)
[2017-03-14] MEDS: APIXABAN 2.5 MG TABLET PO SCH (07:05)
[2017-03-14] MEDS: LOSARTAN 50 MG TAB PO SCH (07:05)
[2017-03-14] MEDS: HYDROCHLOROTHIAZIDE 25 MG TAB PO SCH (07:05)
[2017-03-14] MEDS: ATENOLOL 50 MG TAB PO SCH (07:05)
[2017-03-14] MEDS ORDERED: amLODIPine 5 MG TAB PO SCH (09:00)
--- NOTE | 2017-03-14 10:15 | US ---
EXAMINATION TYPE: US renal artery duplex complete DATE OF EXAM: 03/14/2017 COMPARISON: NONE CLINICAL HISTORY: persistent HTN; Ht 5'3", Wt 182lbs. MEASUREMENTS: RENAL SIZE: Rt Kidney: 8.5 x 4.9 x 3.4cm Lt Kidney: 9.2 x 4.3 x 4.2cm RESISTANCE INDEX Right: 0.56 Left: 0.70 RA/AO RATIO (< 3.5 ) Right: 1.7 Left: 2.3 RA VELOCITY ( < 180 cm/s) Right: 97.3cm/s distal Left: 132.6 cm/s distal Aorta: size is wnl; mild intimal thickening noted mid and distally. Renals: no hydronephrosis or masses seen Renal Artery Duplex: no abnormally elevated velocities are seen within bilateral renal arteries. Renal resistive index on the right is normal. No resistive index on the left is upper limits of lopez l. IMPRESSION: NO EVIDENCE OF A HEMODYNAMICALLY SIGNIFICANT RENAL ARTERY STENOSIS.
[2017-03-14] MEDS ORDERED: amLODIPine 10 MG TAB PO SCH (10:45)
[2017-03-14 12:29] VITALS: BP 131/96; PULSE 79
--- NOTE | 2017-03-14 13:32 | P.DS ---
Providers Date of admission: 03/11/17 19:18 Attending physician: Librado Paz Consults: 03/11/17 19:19 Consult Physician Urgent Consulting Provider: [facility] Consult Reason/Comments: A. fib new onset Do you want consulting provider notified?: Yes Consult Physician Urgent Consulting Provider: Trenton Neri Consult Reason/Comments: TIA Do you want consulting provider notified?: Yes Primary care physician: Librado Paz Dictation on discharge summary date of service 03/14/2017. Dictation by Dr. Jackson Paulino [facility] Final diagnosis: #1 acute atrial fibrillation with rapid ventricular response on admission currently rate controlled on discharge #2 hypertensive urgency with the labile hypertension currently controlled. #3 currently on anticoagulation. Cardiology will follow that as outpatient by Dr. gonzalez. #4 right knee degenerative osteoarthritis associated with mild effusion will be further investigation and treatment as outpatient. #5 no evidence of renal artery stenosis, however the right kidney is 8.5 smaller than normal with questionable chronic kidney disease stage II. Initial presentation to the emergency room: She felt dizzy palpitation at home with the significant weakness when down to the floor as well as controlled to the seat to sit on it, her called 911 brought to the emergency room where they found her with the acute rapid ventricular rate with atrial fibrillation RVR. She was also shortness of breath and that couldn't complain of the right knee sore. Hospital course: Patient adjusted her medications started on cardiac exam and subsequently improved however her blood pressure was fluctuating and thought to be due to underlying renal artery stenosis renal artery duplex scan was done and was negative. Line medication has been adjusted well by Dr. gonzalez, and patient currently stable general condition and will be discharged home today was clearance of the cardiology and to follow-up with Dr. gonzalez as outpatient. As well as Dr. Mendieta in 1 week [id number] examination on discharge: HEENT negative with the dentures upper and lower no lateralizing sign no vision changes and no hearing deficit Neck: Supple no JVD no thyromegaly no lymphadenopathy trachea midline. Chest: Clear to auscultation and percussion no wheezes no rhonchi's Heart still irregular irregularity was at [place] fibrillation with controlled ventricular response. Abdomen soft positive bowel sounds no organ enlargement. Extremities no edema. Pulses bilateral ambulatory. Neurologically stable ambulatory conscious alert oriented 3.4 extremities able to eat normal breathing. Assessment: #1 acute atrial fibrillation with RVR currently controlled rate on discharge. # 2 has currently no symptoms with the hypertension is controlled #2 patient stable for discharge with the new medication. Plan - Discharge Summary New Discharge Prescriptions: New amLODIPine [Norvasc] 10 mg PO DAILY #30 tab Apixaban [Eliquis] 2.5 mg PO BID #60 tab hydrALAZINE HCL [Apresoline] 25 mg PO TID #90 tab Hydrochlorothiazide [Hydrodiuril] 25 mg PO DAILY #30 tab Atenolol [Tenormin] 50 mg PO DAILY tab Atorvastatin [Lipitor] 40 mg PO HS #30 tab Continue Losartan Potassium [Cozaar] 100 mg PO QAM Atenolol [Tenormin] 50 mg PO DAILY Discontinued Simvastatin [Zocor] 20 mg PO HS Discharge Medication List Atenolol [Tenormin] 50 mg PO DAILY 03/11/17 [History] Losartan Potassium [Cozaar] 100 mg PO QAM 03/11/17 [History] Apixaban [Eliquis] 2.5 mg PO BID #60 tab 03/14/17 [Rx] Atenolol [Tenormin] 50 mg PO DAILY tab 03/14/17 [Rx] Atorvastatin [Lipitor] 40 mg PO HS #30 tab 03/14/17 [Rx] Hydrochlorothiazide [Hydrodiuril] 25 mg PO DAILY #30 tab 03/14/17 [Rx] amLODIPine [Norvasc] 10 mg PO DAILY #30 tab 03/14/17 [Rx] hydrALAZINE HCL [Apresoline] 25 mg PO TID #90 tab 03/14/17 [Rx] Follow up Appointment(s)/Referral(s): Froilan Gonzalez MD [STAFF PHYSICIAN] - 2 Weeks Librado Paz MD [Primary Care Provider] - 1-2 days Patient Instructions/Handouts: Apixaban (By mouth), Transient Ischemic Attack ( DC), Atrial Fibrillation (DC) Activity/Diet/Wound Care/Special Instructions: Free 30 day prescription of eliquis filled in [facility] pharmacy. Follow up with [facility] for Eliquis supply after discharge.
--- NOTE | 2017-03-14 15:23 | P.PN ---
Subjective This patient is an 81 year old female being evaluated for atrial fibrillation and TIA. Patient was seen yesterday on neurology consultation. She presented with history of bilateral hand weakness and word finding difficulties and possible mild aphasia. She was having difficulty getting her words out and it did seem to be slightly slurred at times. She was brought into the emergency room by which time her symptoms had resolved. In the ER she was found on EKG to have evidence of new onset atrial fibrillation with a rapid ventricular response. She was also found to have hypertensive urgency. She was sent for computed tomography scan of the brain which failed to reveal any acute stroke or hemorrhage. She was admitted to Hospital. She underwent a carotid Doppler ultrasound which failed to reveal any evidence of significant carotid artery stenosis. Echocardiogram revealed ejection fraction of 55-60 percent. The patient was started on IV heparin protocol due to the atrial fibrillation. She was seen by cardiology for evaluation of her hypertension. Her blood pressure was elevated on admission. She was started on Norvasc along with hydrochlorothiazide by cardiology. Due to to her ongoing atrial fibrillation she has now been started on long-term anticoagulation for management of the atrial fibrillation. She is now been started on for long-term anticoagulation. Patient has been doing very well today. She has had no further episodes of hand weakness or aphasia. Her clinical history is consistent with acute TIA. She underwent a routine EEG yesterday which was reviewed and is normal for age. She is being considered for possible discharge home tomorrow if her blood pressure remains under good control. Her neurological examination today is nonfocal. Patient underwent ultrasound of the kidneys today which came back normal. No evidence for renal artery stenosis. She is being considered for discharge home today. Patient may follow-up in the outpatient neurology clinic in 3-4 weeks following discharge. Her overall prognosis at this time remains guarded. Objective - Vital Signs Vital signs: Vital Signs Temp 97.1 F L 03/14/17 11:50 Pulse 79 03/14/17 11:50 Resp 18 03/14/17 11:50 BP 131/96 03/14/17 11:50 Pulse Ox 97 03/14/17 11:50 Intake & Output 03/13/17 03/14/17 03/14/17 18:59 06:59 18:59 Intake Total 670 240 Output Total 825 Balance 670 -585 Weight 83.6 kg Intake: IV 10 0.9NS@20 10 Oral 660 240 Output: Urine 825 Other: Voiding Method Toilet Toilet - Exam Physical examination: PHYSICAL EXAMINATION: Patient is resting comfortably in bed. VITAL SIGNS: Blood pressure is [131/96]. Heart rate is [79]. Respiration is [18] . Temperature is [97.1]. HEENT: Head is atraumatic, neck is supple, there were no carotid bruits. CHEST: Lungs are clear to auscultation and percussion. CARDIAC: S1, S2 normal rate and rhythm. There is no murmur. ABDOMEN: Soft and nontender. Bowel sounds are present. EXTREMITIES: There is no pedal edema. Peripheral pulses are present. Neurological examination: Patient has a nonfocal neurological examination today. - Labs CBC & Chem 7: 03/12/17 05:41 03/13/17 05:30 Assessment and Plan (1) TIA (transient ischemic attack) Status: Acute Code(s): G45.9 - TRANSIENT CEREBRAL ISCHEMIC ATTACK, UNSPECIFIED (2) Essential hypertension Status: Acute Code(s): I10 - ESSENTIAL (PRIMARY) HYPERTENSION (3) New onset a-fib Status: Acute Code(s): I48.91 - UNSPECIFIED ATRIAL FIBRILLATION Plan: This patient is a 81-year-old female who was seen in neurology consultation yesterday for acute TIA symptoms. She had an episode while washing dishes of hand weakness and difficulty with her speech. The episode resolved by the time she was seen in the emergency room. In the ER she had evidence on EKG of new onset atrial fibrillation with rapid ventricular response. She was started on IV heparin protocol and admitted to the hospital. Patient neurological exam findings since admission have been nonfocal. She has had no recurrence of the TIA symptoms. She was seen by cardiology and has been started on antihypertensive medications were better control of her blood pressure. She is anticoagulated for further treatment of her atrial fibrillation. She was started on was by cardiology today. Her neurological examination today remains nonfocal. She is being considered for possible discharge home today if she remains under good control with her blood pressure. Patient underwent ultrasound of the renal arteries today. This came back negative for any evidence of renal artery stenosis. Blood pressure does seem to be doing better today as well. She is being considered for discharge home later today. Her neurological examination today is nonfocal. Patient may follow-up in the outpatient neurology clinic in 3-4 weeks. Overall prognosis at this time remains guarded.
--- NOTE | 2017-03-14 15:53 | P.PN ---
Subjective Principal diagnosis: TIA, hypertension This is a pleasant 81-year-old female with history of hypertension, prior history of breast cancer with left mastectomy in 2001 who was in her usual state of health, she states that she was washing dishes in the kitchen, when she noticed her bilateral hands became extremely weak and numb, shortly thereafter the patient states she was unable to get the words out that she was thinking, and was having some mild slurring of speech. EMS was called and by the time they arrived symptoms had resolved. Patient denies any prior symptoms similar to this. EKG performed on admission here showed atrial fibrillation with a rapid ventricular response. Blood pressure on arrival here 217/126. Blood pressure this morning 160/113. We will increase the dose Norvasc to 10 mg daily. Patient should be able to be discharged home today. Objective - Vital Signs Vital signs: Vital Signs Temp 97.1 F L 03/14/17 11:50 Pulse 79 03/14/17 11:50 Resp 18 03/14/17 11:50 BP 131/96 03/14/17 11:50 Pulse Ox 97 03/14/17 11:50 Intake & Output 03/13/17 03/14/17 03/14/17 18:59 06:59 18:59 Intake Total 670 240 Output Total 825 Balance 670 -585 Weight 83.6 kg Intake: IV 10 0.9NS@20 10 Oral 660 240 Output: Urine 825 Other: Voiding Method Toilet Toilet - Exam PHYSICAL EXAMINATION: HEENT: Head is atraumatic, normocephalic. Pupils equal, round. Neck is supple. There is no elevated jugular venous pressure. HEART EXAMINATION: Heart S1 and S2 irregularly irregular systolic murmur is heard. CHEST EXAMINATION: Lungs are clear to auscultation and precussion. No chest wall tenderness is noted on palpation or with deep breathing. ABDOMEN: Soft, nontender. Bowel sounds are heard. No organomegaly noted. EXTREMITIES: 2+ peripheral pulses with no evidence of peripheral edema and no calf tenderness noted. NEUROLOGIC patient is awake, alert and oriented -3. . - Labs CBC & Chem 7: 03/12/17 05:41 03/13/17 05:30 Assessment and Plan Plan: Assessment and plan #1 atrial fibrillation , chronic persistent #2 hypertensive urgency #3 TIA #4 history of hypertension #5 history of breast cancer with prior left mastectomy in 2001 Plan We'll increase Norvasc to 10 mg by mouth daily. Patient will have a follow-up appointment to see Dr. Vogel in the office post discharge. DNP note has been reviewed, I agree with a documented findings and plan of care. Patient was seen and examined.
== END 2017-03-14 15:18 | disposition home or self-care (01) | DRG 309 ==
LOC: EC 16:02 → 6SEL 19:18
PROVIDERS: ADMIT Internal Medicine; ATTEND Internal Medicine
DX: I48.1 Persistent atrial fibrillation (principal); R47.01 Aphasia; G45.9 Transient cerebral ischemic attack, unspecified; J44.9 Chronic obstructive pulmonary disease, unspecified; I13.10 Hypertensive heart and chronic kidney disease without heart failure, with stage 1 through stage 4 chronic kidney disease, or unspecified chronic kidney disease; N26.1 Atrophy of kidney (terminal); I48.2 Chronic atrial fibrillation; I16.0 Hypertensive urgency; M25.461 Effusion, right knee; N18.2 Chronic kidney disease, stage 2 (mild); M17.11 Unilateral primary osteoarthritis, right knee; E66.9 Obesity, unspecified; R20.0 Anesthesia of skin; R47.81 Slurred speech; G47.00 Insomnia, unspecified; M62.81 Muscle weakness (generalized); R01.1 Cardiac murmur, unspecified; I83.93 Asymptomatic varicose veins of bilateral lower extremities; R29.703 NIHSS score 3; E78.5 Hyperlipidemia, unspecified; F41.1 Generalized anxiety disorder; Z85.3 Personal history of malignant neoplasm of breast; Z90.12 Acquired absence of left breast and nipple; Z79.82 Long term (current) use of aspirin; Z79.899 Other long term (current) drug therapy; Z79.51 Long term (current) use of inhaled steroids; Z90.49 Acquired absence of other specified parts of digestive tract; Z90.710 Acquired absence of both cervix and uterus; Z68.32 Body mass index [BMI] 32.0-32.9, adult; Z80.9 Family history of malignant neoplasm, unspecified
CPT/HCPCS: 36415; 70450; 70496; 70498; 71020; 80048; 80053; 80061; 81001; 82550; 82553; 83735; 83880; 84439; 84443; 84484; 85025; 85610; 85730; 87086; 93005; 93306; 93880; 93975; 95819; 96361; 96374; 96375; 99285